=== PATIENT | male | born 1965 | race Caucasian/White ===

== ENCOUNTER 2025-09-17 13:43 | Outpatient (AMB) | payer MEDICARE, MEDICAID, SELFPAY ==
--- NOTE | 2025-09-17 13:51 | MHC.OFFVIS ---
Intake Visit Reasons: wants MRI- needed updated note. Intake Note: Patient is a 60 year old male here for continued low back pain si pain pain that drags down the leg into the foot also with numbnesses compression makes it wosre Allergies No Known Allergies Allergy (Verified 09/17/25 13:54) HPI Comments Details: History of Present Illness The patient is a 60 year old male presenting for evaluation of worsening low back pain. He reports undergoing a lumbar decompression for an osteophyte in March 2024, after which imaging still showed moderate stenosis and degeneration. Following the procedure, he experienced a significant period of improvement with little to no pain, allowing him to be physically active, including power washing his house, building a deck, and golfing. Approximately two to three months ago, the patient's symptoms recurred and progressively worsened, which he associates with prolonged sitting while playing the drums. The pain became severe enough that he required a cane to walk and presented to an emergency room, where a CT scan showed degeneration and thickening. He has been attempting conservative self-management for the past three months without success. The patient describes the pain as being primarily on the left side, radiating to the foot, with occasional numbness and pain that fires to the calf. He has since stopped golfing due to the pain. He has a history of receiving a spinal injection that provided two months of relief, but he is unable to return to that provider due to a change in his insurance. He has tramadol, which he obtained in the [place], but he avoids using it because it causes drowsiness. The patient also reports claustrophobia, particularly with MRI scanners. I ordered MRI for him in January of 2025. Patient was unable to obtain MRI due to family tragedy. Patient would like to obtain the MRI at this time. He has a pain level today of 7/10. Pain Description - Onset: Symptoms recurred and worsened over the last 2-3 months after a period of improvement. - Location: Primarily on the left side. - Radiation: The pain radiates down the leg to the foot and fires into the calf. - Quality: Described as a jolt with some movements; associated with numbness at times. - Severity: Rated as 3/10 at rest and up to 8/10 with minimal motion. - Exacerbating Factors: Worsened by minimal movements, such as lifting his leg, and previously by prolonged sitting while playing drums. - Impact on Function: Prevents him from golfing and caused him to limp while on a cruise. [facility] Surgical History (Updated 09/16/25 @ 07:43 by Rowena Simpson MA) H/O: knee surgery H/O hernia repair Social History (Updated 09/16/25 @ 07:44 by Rowena Simpson MA) Alcohol intake: current Alcohol intake frequency: holidays/special occasions only Patient Tobacco Use Status: Never used Tobacco Use of substances other than those prescribed or required for medical reasons: Yes Substance Use Type: Marijuana Review of Systems Narrative Review of Systems - Musculoskeletal: Reports left-sided low back pain. - Neurological: Reports pain radiating down his left leg to the foot. - He also reports intermittent numbness in the foot and pain that fires to the calf . - Psychiatric: Reports claustrophobia related to enclosed spaces like MRI machines. Physical Exam Exam Exam: Physical Exam Lumbar Spine: Examination of his lumbar spine, there is no visible swelling or deformity. He is tender to lower lumbar facets. Full range of motion of his lumbar spine. He does have an increase in pain with facet loading Special Tests: Lhermittes sign was negative Heel Toe walk is normal Left straight leg raise: Negative Right straight leg raise: Negative Special tests Kishor test is negative Ganslen's test is negative SI Joint compression test negative Eitan test negative Piriformis stretch is negative Lower Extremities: Full range of motion bilateral lower extremities. No calf pain or edema. Neuro: Sensation: Intact to lower extremities bilaterally Strength L2 (Psoas): 5/5 on the left and 5/5 on the right. L3 (Quads): 5/5 on the left and 5/5 on the right. L4 (Ant tibialis): 5/5 on the left and 5/5 on the right. L5 (EHL) 5/5 on the left and 5/5 on the right. S1 (Gastroc): 5/5 on the left and 5/5 on the right. DTR L4: (Patellar) Left 2 Right 2 S1: (Achilles) Left 1 Right 1 Babinski Downgoing No pathologic clonus. No involuntary movement. Results Reviewed Results Reviewed: MRI lumbar spine February 2024 impression: Multilevel bony and disc degenerative changes with mild spinal stenosis at L2-3 level. Mass in anterior lateral discogenic osteophyte from L2 to L4-5 level as described. Stenosis lateral recess L4 neuroforaminal possible compression of the left L4 nerve root effacement of the right L4 nerve root. Narrowing lateral recess and L5 neural foramina on the left with compression of the left L5 nerve root. Possible compression of the left L3 nerve root. Assessment & Plan Assessment & Plan (1) Lumbar radiculopathy: Code(s): M54.16 - Radiculopathy, lumbar region Category: Medical (2) Lumbar spondylosis: Code(s): M47.816 - Spondylosis without myelopathy or radiculopathy, lumbar region Category: Medical Plan Pain Management - Analgesia: The patient reports pain levels of 3/10 at rest and 8/10 with activity. - He has tramadol at home but does not use it. - Adverse Effects: He experiences drowsiness from tramadol. - Activities of Daily Living: Pain has caused him to stop golfing completely. 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 - Aberrant Drug Related Behaviors: None noted. Plan Patient was informed and verbally consented to the use of an ambient scribe for clinic note documentation during this visit. 1. Left Lumbar Radiculopathy The patient presents with recurrent left-sided sciatica status post-lumbar decompression surgery. His symptoms have worsened over the last three months despite conservative measures. To further evaluate the etiology of his recurrent pain in the setting of prior surgery, an MRI of the lumbar spine with and without contrast will be ordered. A follow-up appointment will be scheduled after the imaging is completed to review results and discuss further management. Pain medication was offered to help manage symptoms until the follow-up. 2. Claustrophobia The patient has significant claustrophobia, specifically regarding MRI scans. To accommodate this, the ordered MRI will be an open MRI. Anxiolytic medication was offered for the procedure, but the patient declined, stating he feels the open scanner will be sufficient. Discussion Notes I discussed with the patient the rationale for ordering a lumbar MRI with and without contrast, explaining that it provides a better view of the spine after surgery. We addressed his concerns about claustrophobia, and I agreed to order an open MRI at his preferred facility. I offered medication for anxiety during the scan, which he declined. We will have him return for a follow-up visit after the MRI is completed to review the imaging results and formulate a treatment plan. I also offered to prescribe medication to help manage his pain. Patient Instructions - We have ordered an open MRI of your lower back with and without contrast at [facility]. - Please proceed with scheduling and completing this scan. - Schedule a follow-up appointment with our office after your MRI is done so we can review the results together. - Continue to avoid activities that make your pain worse, such as golfing. - Please be aware that the tramadol you have can cause drowsiness, so use it with caution. - Let us know if your pain becomes unmanageable or if you would like to discuss prescription pain medication options. Orders: Orders MR lumbar spine wo/w con Today M51.16 - Intervertebral disc disorders with radiculopathy, lumbar region Coding Level of Care Code Tele Est Pt Level 3 (15438) Diagnoses Lumbar radiculopathy M54.16 Lumbar spondylosis M47.816
--- OUTSIDE RECORDS SUMMARY | 2025-09-17 21:16 | XMS_ITS | Clinical Summary ---
Author Organization [facility] Address [address] [address] Phone Care Team Providers Care Director Music Name Role Phone Unknown, Unknown Primary Care Provider Ean michael Allergies Active Allergy Reactions Criticality Noted Date Comments Wheat Containing Prod 06/12/2024 Other Reaction(s): bloating, runny nose, lethargy, sneezing Medications amLODIPine (NORVASC) 10 MG tablet Take 10 mg by mouth daily. Active atorvastatin (LIPITOR) 80 MG tablet Take 80 mg by mouth every morning. 03/22/2024 Active gemfibroziL (LOPID) 600 MG tablet Take 600 mg by mouth 2 (two) times a day before meals. 05/02/2024 Active losartan (COZAAR) 25 MG tablet Take 1 tablet by mouth every morning. 06/06/2024 Active metFORMIN (GLUCOPHAGE-XR) 500 MG 24 hr tablet Take 500 mg by mouth daily with breakfast. 04/29/2024 Active metoprolol succinate (TOPROL-XL) 50 MG 24 hr tablet Take 1 tablet by mouth every morning. 03/16/2024 Active aspirin 81 MG EC tablet Take 81 mg by mouth daily. Active Active Problems Problem Noted Date Diagnosed Date Basal cell carcinoma of right side of nose 06/12 Aspirin long-term use 06/12/2024 Family History Medical History Relation Comments Heart disease Father Hypertension Father Hypertension Mother Relation Status Comments Father Mother Alive Social History Tobacco Use Types Packs/Day Years Used Date Smoking Tobacco: Former Cigarettes Tobacco Cessation:Counseling Given: Not Answered Alcohol Use Standard Drinks/Week Comments Yes 0 (1 standard drink = 0.6 oz pur e alcohol) Education Answer Date Recorded Are you interested in more education? Not on nicolas e 06/07/2024 Are you concerned about learning? Not on file 06/07/2024 No 06/07/2024 No 06/07/2024 Digital Access Answer Date Recorded No 06/07/2024 No 06/07/2024 Reliable internet access at home? Not on file 06/07/2024 Device with a working camera? Not on file Sex and Gender Information Value Date Recorded Sex Assigned at Not on file Legal Sex Male 1:27 PM EDT Gender Identity Not on file Sexual Orientation Not on file Plan of Treatment Health Maintenance Due Date Last Done Comments Adult Td,Tdap Booster 1966 CREATININE LEVEL 1966 LIPID PANEL 1966 POTASSIUM LEVEL 1966 DEPRESSION SCREENING 1978 SMOKING Hx and SMOKELESS TOB ACCO SCREENING 1979 HEPATITIS C SCREENING 1984 HIV ONE-TIME SCREENING (18-6 5 YEARS) 1984 COLOGUARD 2011 COLONOSCOPY 2011 COLORECTAL CANCER SCREENING 2011 FIT TEST 2011 FOBT 2011 SIGMOIDOSCOPY 2011 VIRTUAL COLONOSCOPY 2011 PNEUMOCOCCAL VACCINES (50+ y ears) (1 of 1 - PCV) 2016 ZOSTER VACCINES (1 of 2) 2016 INFLUENZA VACCINE (#1) 2025 COVID-19 VACCINE (1 - 2024-2 6 season) 2025 RSV VACCINE (1 - 1-dose 75+ series) 2041 HEPATITIS A VACCINES Aged Out No long er eligible based on patient's age to complete this topic HIB VACCINES Aged Out No longer eligi ble based on patient's age to complete this topic MENINGOCOCCAL VACCINES (ACWY) Aged Out No longer eligible based on patient's age to complete this topic MENINGOCOCCAL VACCINES (B) Aged Out N o longer eligible based on patient's age to complete this topic Medical Devices Not on file Insurance [facility] [employer] [place] [address] [place] [address] [employer] [place] [address] [place] [address] [employer] [place] [address] [address] [employer] [place] [address] [place] [address] [employer] [address] [address] [place], [place] [address] Care Teams Director Music Relationship Specialty Start Date End Date Unknown, Unknown, PCP - General 06/07/24 Additional Source Comments The information contained in this document represents components of the legal health record. It is not the complete legal health record.[facility]
--- OUTSIDE RECORDS SUMMARY | 2025-09-17 21:16 | XMS_ITS | Clinical Summary ---
Author Organization [facility] [address] [place] [address] [place] [phone] Phone Care Team Providers Care Crew Foreman Name Role Phone Quinton Marvin MD Primary Care Provider Allergies Active Allergy Reactions Criticality Noted Date Comments Gluten Unknown 09/20/2024 Medications ASPIRIN ORAL Take by mouth. Active MULTIVITAMIN ORAL Take by mouth. Active losartan (COZAAR) 25 mg tablet Take 1 tablet (25 mg total) by mouth 1 (one) time each day. 4 Active atorvastatin (LIPITOR) 80 mg tablet TAKE 1 TABLET BY MOUTH EVERY DAY 90 tablet 1 5 Active Jardiance 10 mg tablet TAKE 1 TABLET BY MOUTH EVERY DAY 30 tablet 5 5 Active amLODIPine (NORVASC) 10 mg tablet Take 1 tablet (10 mg total) by mouth 1 (one) time each day. 90 tablet 2 5 Active omeprazole (PriLOSEC) [address] capsule TAKE 1 CAPSULE BY MOUTH EVERY DAY 90 capsule 5 Active omega-3 acid ethyl esters (Lovaza) 1 gram capsule Take 1 capsule (1 g total) by mouth 2 (two) times a day. 360 each 5 Active metoprolol succinate (TOPROL-XL) 50 mg 24 hr tablet TAKE 1 TABLET BY MOUTH 1 TIME EACH DAY. 90 tablet 5 Active metoprolol succinate (TOPROL-XL) 50 mg 24 hr tablet Take 1 tablet (50 mg total) by mouth 1 (one) time each day. 90 tablet 09/12/20 Discontinued Active Problems Problem Noted Date Diagnosed Date Heart murmur 03/06/2024 Dyslipidemia 03/06/2024 DALIA on CPAP 03/06/2024 Lumbar radiculopathy, chronic 03/06/2024 Overview (10/17/2024): Last Assessment & Plan: Patient is just over 2 weeks s/p left L5-S1 decompression and foraminotomy. He has seen improvement in his left leg pain, distally has residual but improving left calf, lateral foot and heel numbness, occasion jolts of pain in distal left leg. He has not had any issues with wound drainage, fevers, sweats chills. He has been doing gentle exercises and stretching regularly, walking about 10 minutes on the treadmill. 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 Mr. Chacon is doing well postop, can follow-up as needed. All postop questions answered. He does not need any refill on pain meds, only used oxycodone 3 days postop. Ischemic cardiomyopathy 01/25/2024 Type 2 diabetes mellitus wit hout complication, without long-term current use of insulin 12/22/2023 Overview (07/09/2025): 07/09/25 Regulatory IMO Update Coronary artery disease invo lving north fork coronary artery of north fork heart without angina pectoris 12/20/2023 Primary hypertension 12/20/2023 Other hyperlipidemia 12/20/2023 Gastroesophageal reflux disease 12/20/2023 Encounters Date Type Department Care Team Description 09/17/2025 Telephone Adult Medicine [address] [phone] Quinton Marvin MD 07/28/2025 9:30 AM EDT Office Visit Adult Medicine [address] [phone] Quinton Marvin MD Type 2 diabetes mellitus without complication, without long-term current use of insulin ([facility] V24, [facility] V28) (Primary Dx); Other hyperlipidemia; Primary hypertension; Spinal stenosis of lumbar region with neurogenic claudication 07/04/2025 Telephone Adult Medicine [address] [phone] Quinton Marvin MD from Last 3 Months Immunizations Immunization Administration Dates Next Due Influenza trivalent, with pr eservative (Fluzone; Afluria) 6mo and older 10/31/2022,07/22/2020 MMR, measles mumps and rubel la Live (Priorix; M-M-R II) 12mo and older 12/06/2022,11/08/2022 Tdap Tetanus diptheria acell ular pertussis (Boostrix; Adacel) 7yo and older 12/16/2021 Surgical History Surgery Date Site/Laterality Comments OTHER SURGICAL HISTORY PROCEDURE: HISTORY OTHER; COMMENT: umbilical hernia surgery CARDIAC CATHETERIZATION PROCEDURE: HISTORICAL CARDIAC CATH; COMMENT: 07/23/2020 OTHER SURGICAL HISTORY N/A PROCEDURE: HISTORY OTHER; COMMENT: Nasal reconstruction OTHER SURGICAL HISTORY N/A PROCEDURE: HISTORY OTHER; COMMENT: ORIF (L) Ulna, ORIF(Right) Fibula BACK SURGERY 04/01/2024 PROCEDURE: HISTORICAL BACK SURGERY; COMMENT: left L5-S1 decompression and foraminotomy, Dr. Oliver Medical History Medical History Date Comments CAD (coronary artery disease) DX :CAD (coronary artery disease) HTN (hypertension) DX:HTN (hyper tension) HLD (hyperlipidemia) DX:HLD (hyp erlipidemia) Sleep apnea DX:Sleep apnea Depression DX:Depression Leg pain DX:Leg pain Leg weakness DX:Leg weakness Ischemic cardiomyopathy 01/25/2024 DX:Ische leila cardiomyopathy New onset type 2 diabetes me llitus ([facility] V24, [facility] V28) 12/22/2023 DX:New onset type 2 diabete s mellitus ([facility]) Family History Medical History Relation Name Comments Other: Other Brother DALIA Diabetes Maternal Grandmother Relation Name Status Comments Brother Maternal Grandmother Social History Tobacco Use Types Packs/Day Years Used Date Smoking Tobacco: Former Cigarettes 0.5 Q uit: 12/22/1993 Smokeless Tobacco: Never Tobacco Cessation:Counseling Given: Not Answered Alcohol Use Standard Drinks/Week Comments Yes 0 (1 standard drink = 0.6 oz pur e alcohol) Housing Instability Answer Date Recorde d Are you worried that in the next 2 months you may not have stable housing? No 11/20/2024 Food Access & Nutrition Answer Date Rec orded Do you have access to a vari ety of food including fruits and vegetables? No 11/20/2024 Health Literacy Answer Date Recorded How often do you need to hav e someone help you when you read instructions, pamphlets, or other written material from your doctor or pharmacy? Never 11/20/2024 Caregiver: How often do you need to have someone help you when you read instructions, pamphlets, or other written material from your doctor or pharmacy? Not on file 11/20/2024 Financial Risk Answer Date Recorded How hard is it for you to pa y for the very basics like food, housing, medical care, and air conditioning / heating? Not very hard 11/20/2024 Transportation Answer Date Recorded Has the lack of transportati on kept you from meetings, work, or from getting things needed for daily living? No Has the lack of transportati on kept you from medical appointments or from getting medications? No 11/20/2024 Social Isolation Answer Date Recorded How often do you feel lonely or isolated from th ose around you? Never 11/20/2024 Food Risk Answer Date Recorded Within the past 12 months we worried whether our food would run out before we got money to buy more. Never true 11/20/2024 Within the past 12 months th e food we bought just didn't last and we didn't have money to get more. Never true 11/20/2024 Dependent Care Answer Date Recorded Do you need help finding or paying for care for your loved ones. For example, child welfare worker or elderly care for an older adult? No 11/20/2024 Education Answer Date Recorded Do you think completing more education or training, like finishing a GED, going to college, or learning a trade, would be helpful for you? No 11/20/2024 Employment and Income Answer Date Recor ded During the last four weeks, have you been actively looking for work? No 11/20/2024 Living Situation Answer Date Recorded What is your living situation? Unrecognized valu e 11/20/2024 Sex and Gender Information Value Date Recorded Sex Assigned at Not on file Legal Sex Male 11:02 AM EDT Gender Identity Not on file Sexual Orientation Not on file Last Filed Vital Signs Vital Sign Reading Time Taken Comments Blood Pressure 133/71 07/28/2025 9:38 AM EDT Pulse 87 07/28/2025 9:38 AM EDT Temperature 36.9 C (98.5 F) 07/28/2025 9:38 AM EDT Respiratory Rate 15 07/28/2025 9:38 AM EDT Oxygen Saturation 96% 07/28/2025 9:38 AM EDT Inhaled Oxygen Concentration - - Weight 79.2 kg (174 lb 9.6 oz) 07/28/2025 9:38 A M EDT Height 160 cm (5' 3 ) 07/28/2025 9:38 AM EDT Body Mass Index 30.93 07/28/2025 9:38 AM EDT Plan of Treatment Health Maintenance Due Date Last Done Comments Pneumococcal Vaccine: 50+ Years (1 of 2 - PCV) 1985 RSV Immunization Adult Patients (1 - Risk 50-74 years 1-dose series) 2016 Zoster Vaccines (1 of 2) 2016 Diabetes: Blood Sugar Control Test (HGBA1C) 05/14/2025 11/14/2024, 07/26/2024, 07/26/2024, Additional history exists COVID-19 Vaccine ( season) 2025 11/08/2022, 09/08/2021, 12/06/2020 Diabetes: Annual Retina Eye Exam 10/23/2025 10/23/2024 Diabetes: Annual Urine Albumin-Creatinine Ratio (uACR) 11/14/2025 11/14/2024, 04/19/2024 Diabetes: Annual GFR (Glomerular Filtration Rate) 11/14/2025 11/14/2024, 07/26/2024, 07/26/2024, Additional history exists Hypertension/CHF/CAD Annual BMP Blood Test 11/14/2025 11/14/2024, 07/26/2024, 07/26/2024, Additional history exists Diabetes: Annual Foot Exam 11/20/2025 11/20/2024 Social Influencers of Health Screening 11/20/2025 11/20/2024 Influenza Vaccine (#1) 2026 10/31/2022, 2019 Postponed from 06/09/2025 (Patient Refused) Cholesterol Screening (Lipid Panel) 11/14/2029 11/14/2024, 05/01/2024, 05/01/2024, Additional history exists DTaP,Tdap,and Td Vaccines (2 - Td or Tdap) 12/17/2031 12/16/2021 Colorectal Cancer Screening: Colonoscopy 07/03/2034 07/03/2024 MMR Vaccines Aged Out 12/06/2022, 11/08/2022 No lo nger eligible based on patient's age to complete this topic Hepatitis C Screening Completed 12/21/2023 Depression Screening Completed 07/28/2025, 12/20/19 HIB Vaccines Aged Out No longer eligi ble based on patient's age to complete this topic HIV Screening Discontinued HPV Vaccines Aged Out No longer eligi ble based on patient's age to complete this topic Hepatitis A Vaccines Aged Out No long er eligible based on patient's age to complete this topic Hepatitis B Vaccines Discontinued IPV Vaccines Aged Out No longer eligi ble based on patient's age to complete this topic Medicare Annual Wellness Visit Discontinued Meningococcal ACWY Vaccine Aged Out N o longer eligible based on patient's age to complete this topic Meningococcal B Vaccine Aged Out No l onger eligible based on patient's age to complete this topic RSV Immunization Patients Under 20 months Aged Out No longer eligible based on patient's age to complete this topic Varicella Vaccines Aged Out No longer eligible based on patient's age to complete this topic Procedures Procedure Name Priority Date/Time Associated Diagnosis Comments MICROALBUMIN CREATININE URINE RATIO Routine 11/14/2024 11:50 AM EST Dyslipidemia Type 2 diabetes mellitus with obesity (CMS/HCC V24, CMS/[facility] V28) Other hyperlipidemia Gastroesophageal reflux disease, unspecified whether esophagitis present Heart murmur Ischemic cardiomyopathy Primary hypertension Coronary artery disease involving north fork coronary artery of north fork heart without angina pectoris DALIA on CPAP Lumbar radiculopathy, chronic COMPREHENSIVE METABOLIC PANEL Routine 11/14/2024 11:50 AM EST Dyslipidemia Type 2 diabetes mellitus with obesity (CMS/HCC V24, CMS/HCC V28) Other hyperlipidemia Gastroesophageal reflux disease, unspecified whether esophagitis present Heart murmur Ischemic cardiomyopathy Primary hypertension Coronary artery disease involving north fork coronary artery of north fork heart without angina pectoris DALIA on CPAP Lumbar radiculopathy, chronic HEMOGLOBIN A1C Routine 11/14/2024 11:50 AM EST Dyslipidemia Type 2 diabetes mellitus with obesity ([facility] V24, [facility] V28) Other hyperlipidemia Gastroesophageal reflux disease, unspecified whether esophagitis present Heart murmur Ischemic cardiomyopathy Primary hypertension Coronary artery disease involving north fork coronary artery of north fork heart without angina pectoris DALIA on CPAP Lumbar radiculopathy, chronic LIPID PANEL WITH REFLEX TO DIRECT LDL Routine 11/14/2024 11:50 AM EST Dyslipidemia Type 2 diabetes mellitus with obesity ([facility] V24, [facility] V28) Other hyperlipidemia Gastroesophageal reflux disease, unspecified whether esophagitis present Heart murmur Ischemic cardiomyopathy Primary hypertension Coronary artery disease involving north fork coronary artery of north fork heart without angina pectoris DALIA on CPAP Lumbar radiculopathy, chronic HEPATITIS C SCREENING Routine 12/21/2023 DEPRESSION SCREENING Routine 12/20/2023 from Last 3 Months or Most Recently Relevant to Health Maintenance Results * (ABNORMAL) Lipid panel with reflex to direct LDL (11/14/2024 11:50 AM EST) Cholesterol 191 0 - 200 mg/dL LAB CHEMISTRY METHOD 11/14/2024 3:04 PM [facility] Triglycerides 270(H) 0 - 150 mg/dL LAB CHEMISTRY METHOD 11/14/2024 3:04 PM [facility] HDL 34(L) >=40 mg/dL LAB CHEMISTRY METHOD 11/14/2024 3:04 PM [facility] LDL Calculated 103(H) 0 - 100 mg/dL LAB CHEMISTRY METHOD 11/14/2024 3:04 PM [facility] VLDL Cholesterol [place] 54 mg/dL LAB CHEMISTRY METHOD 11/14/2024 3:04 PM [facility] Non HDL Chol. (LDL+VLDL) 157(H) <145 mg/dL LAB CHEMISTRY METHOD 11/14/2024 3:04 PM [facility] Chol/HDL Ratio 5.6(H) 0.0 - 4.4 LAB CHEMISTRY METHOD 11/14/2024 3:04 PM [facility] Blood Venous blood specimen / Unknown Venipuncture / Unknown 11/14/2024 11:50 AM EST 11/14/2024 11:50 AM EST Quinton Marvin MD LAB BLOOD ORDERABLES F inal Result Performing Organization Address City/[facility]/ZIP Co de Phone Number [facility] [address] [place] [address], [place] [phone] * Microalbumin creatinine urine ratio (11/14/2024 11:50 AM EST) Pathologist [facility] Creatinine, Urine 96.0 mg/dL LAB CHEMISTRY METHOD 11/14/2024 3:13 PM [facility] Microalb, Ur 6.1 0.0 - 29.0 mg/L LAB CHEMISTRY METHOD 11/14/2024 3:13 PM [facility] Microalb/Creat Ratio 6 <30 mg/g creat LAB CHEMISTRY METHOD 11/14/2024 3:13 PM [facility] Urine Urine specimen obtained by clean catch procedure / Unknown Non-blood Collection / Unknown 11/14/2024 11:50 AM EST 11/14/2024 11:50 AM EST us Quinton Marvin MD LAB URINE ORDERABLES F inal Result Performing Organization Address [facility]/ZIP Co de Phone Number [facility] [address] [place] [address], [place] [phone] * Hemoglobin A1c (11/14/2024 11:50 AM EST) Pathologist [facility] Hemoglobin A1C 6.4 <6.5 % LAB CHEMISTRY METHOD 11/14/2024 8:12 PM [facility] Mean Bld Glu Estim. 137 mg/dL LAB CHEMISTRY METHOD 11/14/2024 8:12 PM [facility] Blood Venous blood specimen / Unknown Venipuncture / Unknown 11/14/2024 11:50 AM EST 11/14/2024 11:50 AM EST us Quinton Marvin MD LAB BLOOD ORDERABLES F inal Result [facility] [address] [place] [address], * (ABNORMAL) Comprehensive metabolic panel (11/14/2024 11:50 AM EST) [facility] Sodium 137 133 - 145 mmol/L LAB CHEMISTRY METHOD 11/14/2024 3:04 PM [facility] Potassium 4.1 3.5 - 5.5 mmol/L LAB CHEMISTRY METHOD 11/14/2024 3:04 PM [facility] Chloride 103 96 - 110 mmol/L LAB CHEMISTRY METHOD 11/14/2024 3:04 PM [facility] CO2 29 21 - 32 mmol/L LAB CHEMISTRY METHOD 11/14/2024 3:04 PM [facility] Anion Gap 5 3 - 11 LAB CHEMISTRY METHOD 11/14/2024 3:04 PM [facility] Glucose 156(H) 70 - 100 mg/dL LAB CHEMISTRY METHOD 11/14/2024 3:04 PM [facility] BUN 23 5 - 25 mg/dL LAB CHEMISTRY METHOD 11/14/2024 3:04 PM [facility] Creatinine 1.19 0.70 - 1.30 mg/dL LAB CHEMISTRY METHOD 11/14/2024 3:04 PM [facility] eGFR 71 >=60 mL/min/1. 73m2 LAB CHEMISTRY METHOD 11/14/2024 3:04 PM [facility] Comment:Calculation based on the Chronic Kidney Disease Epidemiology Collaboration (CKD-EPI) equation refit without adjustment for race. BUN/Creatinine Ratio 19.3 LAB CHEMISTRY METHOD 11/14/2024 3:04 PM [facility] Calcium 9.4 8.5 - 10.5 mg/dL LAB CHEMISTRY METHOD 11/14/2024 3:04 PM [facility] AST (SGOT) 22 10 - 42 unit/L LAB CHEMISTRY METHOD 11/14/2024 3:04 PM [facility] ALT (SGPT) 50 10 - 60 unit/L LAB CHEMISTRY METHOD 11/14/2024 3:04 PM [facility] Alkaline Phosphatase 80 42 - 121 unit/L LAB CHEMISTRY METHOD 11/14/2024 3:04 PM [facility] Total Protein 7.7 6.0 - 8.0 g/dL LAB CHEMISTRY METHOD 11/14/2024 3:04 PM [facility] Albumin 4.2 3.2 - 5.0 g/dL LAB CHEMISTRY METHOD 11/14/2024 3:04 PM [facility] Total Bilirubin 0.6 0.0 - 1.4 mg/dL LAB CHEMISTRY METHOD 11/14/2024 3:04 PM [facility] Blood Venous blood specimen / Unknown Venipuncture / Unknown 11/14/2024 11:50 AM EST 11/14/2024 11:50 AM EST us Quinton Marvin MD LAB BLOOD ORDERABLES F inal Result [facility] [address] [place] [address], * Hepatitis C Screening (12/21/2023) Hepatitis C Screening abstracted Historical Provider HEALTH MAINTENANCE Final Result * Depression Screening (12/20/2023) Depression Screening abstracted us Historical Provider HEALTH MAINTENANCE Final Result from Last 3 Months or Most Recently Relevant to Health Maintenance Insurance MEDICAID - [place] [facility] [employer] Care Teams Crew Foreman Relationship Specialty Start Date End Date Quinton Marvin MD [address] [place], [place] PCP - General 08/03/23
--- OUTSIDE RECORDS SUMMARY | 2025-09-17 21:16 | XMS_ITS | Encounter Summary ---
Author Organization [facility] Address [address] [place] [address] Phone Care Team Providers Care Helper [employer] Name Role Phone Unknown, Unknown Primary Care Provider Ean michael Encounter Details Date Type Department Care Team (Late st Contact Info) Description 08/02/2024 Procedure Pass OR Admitting Dept - Virtual Department [address] [place] [address] Social History Tobacco Use Types Packs/Day Years Used Date Smoking Tobacco: Former Cigarettes Alcohol Use Standard Drinks/Week Comments Yes 0 [...] on file Sexual Orientation Not on file documented as of this encounter Plan of Treatment Not on file documented as of this encounter Visit Diagnoses Not on filedocumented in this encounter Care Teams Helper [employer] Relationship Specialty Start Date End Date Unknown, Unknown, PCP - General 06/07/24 documented as of this encounter Additional Source Comments The information contained in this document represents components of the legal health record. It is not the complete legal health record.[facility]
--- OUTSIDE RECORDS SUMMARY | 2025-09-17 21:16 | XMS_ITS | Encounter Summary ---
Author Organization [facility] Address [address] [place] [address] Care Team Providers Care Home Builder Name Role Phone Quinton Marvin MD Primary Care Provider Reason for Referral * Consultation (Routine) - Closed Specialty Diagnoses / Procedures Referred By Contact Referred To Contact Physical Medicine and Rehabilitation Diagnoses Radiculopathy, lumbar region Quinton Marvin MD [address] [place] [address] Phone: tel: fax: Jersey Mac DO [address] [place] [address] Phone: tel:[phone] fax: Referral ID Status Reason Start Date Expiration Date V isits Requested Visits Authorized [id number] Closed Specialty Services Required 09/17/2025 09/17/2026 12 12 Reason for Visit * Reason Onset Date Comments Referral 09/17/2025 PM&R Insurance R eferral Encounter Details Date Type Department Care Team (Late st Contact Info) Description 09/17/2025 Telephone Adult Medicine [facility] [address] [place] [address] Quinton Marvin MD [address] [place] [address] Social History Tobacco Use Types Packs/Day Years Used Date Smoking Tobacco: Former Cigarettes 0.5 Q uit: 12/22/1993 Smokeless Tobacco: Never Alcohol Use Standard Drinks/Week Comments Yes 0 [...] care for your loved ones. For example, maternal child nurse or elderly care for an older adult? [...] on file documented as of this encounter Progress Notes * Yessica Rader - 09/17/2025 8:56 AM EST What insurance does the patient have today? Payor: @[email or web address] Referrals cannot be processed if the insurance is not accurate. If the insurance listed above is NO BILLING INFORMATION FOUND FOR THIS ENCOUNTER then the patients correct insurance must be obtainedand registered in [facility] or their referral can not be processed. Name of person calling to request this referral? Fax -Family Physiatry Referred To Provider (Include first and last name): Jersey Mac NPI (if known): [phone] Order/Specialty requested PM&R Chief Complaint (Note: This is not a body part or a procedure): M54.16 Has the patient seen provider for this problem/Dx before? Referred To Provider Address: [address] [place] [address] Referred To Provider Referred To Provider Does patient have an appointment scheduled?: yes If yes, what is the date of the appointment?: 09/17/25 Is this a retro request? no Number of visits requested: 12 Is this appointment related to: MVA or worker compensation? no documented in this encounter Plan of Treatment Scheduled Referrals Name Type Priority Associated Diagnoses Order Schedule Ambulatory referral to Physical Medicine Rehab Outpatient Referral Routine Radiculopathy, lumbar region Expected: 09/17/2025, Expires: 09/17/2026 documented as of this encounter Visit Diagnoses Diagnosis Radiculopathy, lumbar region- Primary Thoracic or lumbosacral neuritis or radiculitis, unspecified documented in this encounter Additional Health Concerns Assessment Noted Time PHQ-9 Depression Total Score: 0 07/28/20 25 9:38 AM EDT documented as of this encounter Care Teams Home Builder Relationship Specialty Start Date End Date Quinton Marvin MD [address] [place] [address] PCP - General 08/03/23 documented as of this encounter
--- OUTSIDE RECORDS SUMMARY | 2025-09-17 21:16 | XMS_ITS | Clinical Summary ---
Author Organization [facility] Address [address] [place] [address] Care Team Providers Care Sleep Technologist Name Role Phone Quinton Marvin MD Primary Care Provider Allergies Active Allergy Reactions Criticality Noted Date Comments Gluten Unknown 09/20/2024 Wheat Containing Prod Unknown 06/12/2024 Other Reaction(s): bloating, runny nose, lethargy, sneezing Medications aspirin 81 MG suspension 4 Active Jardiance 10 mg 4 Active metFORMIN ER (GLUCOPHAGE XR) 500 mg tablet SMARTSI Tablet(s) By Mouth Every Morning Active atorvastatin (LIPITOR) 80 mg tablet SMARTSI Tablet(s) By Mouth Daily Active losartan (COZAAR) 25 mg tablet SMARTSI Tablet(s) By Mouth Daily Active metoprolol succinate XL (TOPROL XL) 50 mg tablet SMARTSI Tablet(s) By Mouth Daily Active amlodipine-ator vastatin (CADUET) 10-10 mg per tablet 4 Active amLODIPine (NORVASC) 10 mg tablet SMARTSI Tablet(s) By Mouth Daily Active multivitamin-mi nerals-lutein (Multivitamin 50 Plus) tablet 4 Active dexAMETHasone (DECADRON) 4 mg tablet TAKE 1 TABLET BY MOUTH 4 TIMES DAILY WITH MEALS AND NIGHTLY FOR 16 DOSES. 4 Active Laxative, bisacodyl, 5 mg EC tablet SMARTSI Tablet(s) By Mouth 4 Active gemfibroziL (LOPID) 600 mg tablet SMARTSI Tablet(s) By Mouth Twice Daily Active omega-3 fatty acids/fish oil (FISH OIL OMEGA 3-6-9 ORAL) 4 Active oxyCODONE IR (ROXICODONE) 5 mg tablet SMARTSI-2 Tablet(s) By Mouth Every 4 Hours PRN 4 Active omeprazole (PriLOSEC) 20 mg capsule 4 Active Hibiclens 4 % external liquid PLEASE SEE ATTACHED FOR DETAILED DIRECTIONS 4 Active Active Problems No known active problems Social History Tobacco Use Types Packs/Day Years Used Date Smoking Tobacco: Never Assessed Sex and Gender Information Value Date Recorded Sex Assigned at Male 08/29/2024 4:13 PM EST Legal Sex Male 4:10 PM EST Gender Identity Male 09/13/2024 10:13 AM EST Sexual Orientation Straight 09/13/2024 10 :13 AM EST Last Filed Vital Signs Vital Sign Reading Time Taken Comments Blood Pressure 145/87 09/20/2024 7:59 AM EST Pulse 86 09/20/2024 7:59 AM EST Temperature - - Respiratory Rate - - Oxygen Saturation - - Inhaled Oxygen Concentration - - Weight - - Height - - Body Mass Index - - Plan of Treatment Health Maintenance Due Date Last Done Comments Cologuard 1966 Colon Cancer Screening 1966 Colonoscopy 1966 FOBT / Fit Test 1966 HIV Screening 1966 Hepatitis C Screening 1966 Sigmoidoscopy 1966 Hepatitis B Vaccines (1 of 3 - 19+ 3-dose series) 1985 Pneumococcal Vaccine: 50+ Ye ars (1 of 1 - PCV) 2016 Zoster Vaccines (1 of 2) 2016 Alcohol/Substance Use Screening 10/09/2024 Depression Screening and Follow-Up 10/09/2024 Social Drivers of Health Sharee ual Screening 10/09/2024 Influenza Vaccine (#1) 2025 10/31/2022, 2019 COVID-19 Vaccine (4 - 2024- season) 2025 11/08/2022, 09/08/2021, 12/06/2020 DTaP,Tdap,and Td Vaccines (2 - Td or Tdap) 12/17/2031 12/16/2021 Insurance [facility] MEDICAID Care Teams Sleep Technologist Relationship Specialty Start Date End Date Quinton Marvin MD [address] [place] [address] PCP - General 08/29/24
== END 2025-09-17 14:36 | disposition home or self-care (01) ==
LOC: HO.HPHYS 13:43
PROVIDERS: PCP Internal Medicine; Visit Provider Physician Assistant
DX: M54.16 Radiculopathy, lumbar region (principal); M47.816 Spondylosis without myelopathy or radiculopathy, lumbar region
CPT/HCPCS: 99213

== ENCOUNTER → 2025-09-17 13:43 | Outpatient (BNVA) | payer MEDICARE, MEDICAID, SELFPAY | PROVIDERS: PCP Internal Medicine; Visit Provider Physician Assistant | DX: M47.26 Other spondylosis with radiculopathy, lumbar region (principal); F40.240 Claustrophobia | CPT/HCPCS: 99212 ==